=== PATIENT | female | born 1980 | race Caucasian/White ===

== ENCOUNTER 2016-09-28 14:55 | Observation (INO) | payer OTHER ==
--- NOTE | 2016-09-28 15:48 | ED ---
SOB HPI - General Chief Complaint: Shortness of Breath Stated Complaint: [facility] sent/SOB Time Seen by Provider: 09/28/16 15:29 Source: patient, RN notes reviewed Mode of arrival: ambulatory Limitations: no limitations - History of Present Illness Initial Comments: Patient is a 35-year-old female with chief complaint of sinus congestion and chest congestion for approximately 4 days. Patient reports that she's had increased shortness of breath however it's been on-and-off for a few days prior to today. Patient reports that shortness of breath is worse with exertion. She states that she's had a nonproductive cough as well. She attempted to try Mucinex D with minimal relief. She was sent here by an urgent care facility which she completed a rapid flu and strep are both negative as well as an albuterol breathing treatment. Patient's difficulty breathing is not improved after the breathing treatment. Patient does have a history of a DVT and had a iron a the EC filter placed and removed approximately 3 years ago. Patient states that she has not had any leg swelling or trauma or history of cancer. Patient is a smoker. Patient states that she does feel some numbness that radiates towards her left shoulder. Patient denies any other significant past medical history including history of hypertension or coronary artery disease. - Related Data Home Medications Medication Instructions Recorded Confirmed FLUoxetine HCL [Fluoxetine HCl] 20 mg PO DAILY 04/22/15 04/22/15 Ferrous Sulfate [Feosol] 325 mg PO BID 04/22/15 04/22/15 Naproxen [Naprosyn] 500 mg PO Q12HR 04/22/15 04/22/15 Previous Rx's Medication Instructions Recorded Acetaminophen-Codeine 300-30mg 1 each PO Q6H PRN #10 tablet 04/22/15 [Tylenol #3] Orphenadrine [Norflex] 100 mg PO Q12H PRN #6 tablet.er 04/22/15 Triamcinolone 0.5% Cream [Kenalog] 1 applic TOPICAL BID #30 cream..g. 04/22/15 Allergies Allergy/AdvReac Type Severity Reaction Status Date / Time No Known Allergies Allergy Verified 09/28/16 15:21 Review of Systems ROS Statement: Those systems with pertinent positive or pertinent negative responses have been documented in the HPI. ROS Other: All systems not noted in ROS Statement are negative. Past Medical History Past Medical History: Deep Vein Thrombosis (DVT) History of Any Multi-Drug Resistant Organisms: None Reported Past Surgical History: Section Past Psychological History: Depression Smoking Status: Current every day smoker Past Alcohol Use History: None Reported Past Drug Use History: None Reported General Exam - General Exam Comments Initial Comments: Patient is a 35-year-old female. She is on appear to be in any acute distress at this time. Limitations: no limitations General appearance: alert, in no apparent distress Head exam: Present: atraumatic, normocephalic, normal inspection Eye exam: Present: normal appearance, PERRL, EOMI. Absent: scleral icterus, conjunctival injection, periorbital swelling ENT exam: Present: normal exam, normal oropharynx, mucous membranes moist, TM's normal bilaterally Neck exam: Present: normal inspection. Absent: tenderness, meningismus, lymphadenopathy Respiratory exam: Present: normal lung sounds bilaterally. Absent: respiratory distress, wheezes, rales, rhonchi, stridor Cardiovascular Exam: Present: regular rate, normal rhythm, normal heart sounds. Absent: systolic murmur, diastolic murmur, rubs, gallop, clicks GI/Abdominal exam: Present: soft, normal bowel sounds. Absent: distended, tenderness, guarding, rebound, rigid Extremities exam: Present: normal inspection, full ROM, normal capillary refill. Absent: tenderness, pedal edema, joint swelling, calf tenderness Back exam: Present: normal inspection Neurological exam: Present: alert Psychiatric exam: Present: normal affect, normal mood Skin exam: Present: warm, dry, intact, normal color. Absent: rash Course Vital Signs 09/28/16 09/28/16 15:19 15:45 Temperature 98.1 F Pulse Rate 94 Respiratory 20 18 Rate Blood Pressure 123/76 O2 Sat by Pulse 98 Oximetry Medical Decision Making - Medical Decision Making Patient is a 35-year-old female with chief complaint of shortness of breath increasing over the past 4 days. She does not worse today and is worse with exertion. Patient denies any significant cardiac history however she is a smoker. Patient reports that she's had a history of blood clots in her lungs when she had a . Patient's lab work is relatively benign at this time. Patient has negative troponin and cardiac enzymes. Patient has a negative d-dimer as well. Patient's EKG is relatively abnormal with possible inferior infarct and anterior infarct. I discussed this case with Dr. Yuan and it would be safer to admit the patient for observation for the following evening. Patient understands the treatment plan and agrees to it. Patient understands the plan and will comply. - Lab Data Result diagrams: 09/28/16 15:44 09/28/16 15:44 Lab Results 09/28/16 09/28/16 09/28/16 Range/Units 15:44 15:44 15:44 WBC 7.6 (3.8-10.6) k/uL RBC 5.11 (3.80-5.40) m/uL Hgb 15.9 (11.4-16.0) gm/dL Hct 48.3 H (34.0-46.0) % MCV 94.4 (80.0-100.0) fL MCH 31.1 (25.0-35.0) pg MCHC 33.0 (31.0-37.0) g/dL RDW 13.4 (11.5-15.5) % Plt Count 215 (150-450) k/uL Neutrophils % 71 % Lymphocytes % 24 % Monocytes % 3 % Eosinophils % 1 % Basophils % 0 % Neutrophils # 5.4 (1.3-7.7) k/uL Lymphocytes # 1.8 (1.0-4.8) k/uL Monocytes # 0.2 (0-1.0) k/uL Eosinophils # 0.1 (0-0.7) k/uL Basophils # 0.0 (0-0.2) k/uL PT 11.2 (9.0-12.0) sec INR 1.1 (<1.1) APTT 23.0 (22.0-30.0) sec D-Dimer 0.18 (<0.60) mg/L FEU Sodium 143 (137-145) mmol/L Potassium 3.9 (3.5-5.1) mmol/L Chloride 106 (98-107) mmol/L Carbon Dioxide 25 (22-30) mmol/L Anion Gap 12 mmol/L BUN 13 (7-17) mg/dL Creatinine 0.59 (0.52-1.04) mg/dL Est GFR (MDRD) Af Amer >60 (>60 ml/min/1.73 sqM) Est GFR (MDRD) Non-Af >60 (>60 ml/min/1.73 sqM) Glucose 113 H (74-99) mg/dL Calcium 9.5 (8.4-10.2) mg/dL Magnesium (1.6-2.3) mg/dL Total Creatine Kinase (30-135) U/L CK-MB (CK-2) (0.0-2.4) ng/mL CK-MB (CK-2) Rel Index Troponin I (0.000-0.034) ng/mL 09/28/16 09/28/16 Range/Units 15:44 15:44 WBC (3.8-10.6) k/uL RBC (3.80-5.40) m/uL Hgb (11.4-16.0) gm/dL Hct (34.0-46.0) % MCV (80.0-100.0) fL MCH (25.0-35.0) pg MCHC (31.0-37.0) g/dL RDW (11.5-15.5) % Plt Count (150-450) k/uL Neutrophils % % Lymphocytes % % Monocytes % % Eosinophils % % Basophils % % Neutrophils # (1.3-7.7) k/uL Lymphocytes # (1.0-4.8) k/uL Monocytes # (0-1.0) k/uL Eosinophils # (0-0.7) k/uL Basophils # (0-0.2) k/uL PT (9.0-12.0) sec INR (<1.1) APTT (22.0-30.0) sec D-Dimer (<0.60) mg/L FEU Sodium (137-145) mmol/L Potassium (3.5-5.1) mmol/L Chloride (98-107) mmol/L Carbon Dioxide (22-30) mmol/L Anion Gap mmol/L BUN (7-17) mg/dL Creatinine (0.52-1.04) mg/dL Est GFR (MDRD) Af Amer (>60 ml/min/1.73 sqM) Est GFR (MDRD) Non-Af (>60 ml/min/1.73 sqM) Glucose (74-99) mg/dL Calcium (8.4-10.2) mg/dL Magnesium 1.9 (1.6-2.3) mg/dL Total Creatine Kinase 53 (30-135) U/L CK-MB (CK-2) 0.4 (0.0-2.4) ng/mL CK-MB (CK-2) Rel Index 0.8 Troponin I <0.012 (0.000-0.034) ng/mL 09/28/16 17:12EKG shows normal sinus rhythm. There is evidence of an inferior infarct and anterior infarct which the age is undetermined. The ventricular rate of 87 bpm. 4 ms. QRS duration 90 ms. QT/QTc is 44/46 seconds. there is evidence of ST depression in lead 3. - Radiology Data Radiology results: report reviewed Chest x-ray reviewed as negative for any acute process.. Disposition Clinical Impression: Chest pain, Dyspnea on exertion Disposition: ADMITTED IP TO THIS HOSP Referrals: Roxanna Washington MD [Primary Care Provider] - 1-2 days Time of Disposition: 17:24
[2016-09-28 16:06] LABS: Anion Gap 12 mmol/L; Blood Urea Nitrogen 13 mg/dL (7-17); Calcium 9.5 mg/dL (8.4-10.2); Carbon Dioxide 25 mmol/L (22-30); Chloride 106 mmol/L (98-107); Glucose 113 mg/dL (74-99); Non-African American GFR(MDRD) >60 (>60 ml/min/1.73 sqM); Potassium 3.9 mmol/L (3.5-5.1); Sodium 143 mmol/L (137-145)
[2016-09-28 16:10] LABS: Basophils % (A) 0 %; CHCM 34.1; Eosinophils # (A) 0.1 k/uL (0-0.7); Eosinophils % (A) 1 %; HCT 48.3 % (34.0-46.0); HDW 2.36; HGB 15.9 gm/dL (11.4-16.0); Luc # (Auto) 0.09; Luc % (Auto) 1; Lymphocytes # (A) 1.8 k/uL (1.0-4.8); Lymphocytes % (A) 24 %; MCH 31.1 pg (25.0-35.0); MCV 94.4 fL (80.0-100.0); Mean Platelet Volume 7.9; Monocytes # (A) 0.2 k/uL (0-1.0); Monocytes % (A) 3 %; Neutrophils # (A) 5.4 k/uL (1.3-7.7); Neutrophils % (A) 71 %; RBC 5.11 m/uL (3.80-5.40); RDW 13.4 % (11.5-15.5); WBC 7.6 k/uL (3.8-10.6); WBC (Perox) 7.53
[2016-09-28 16:16] LABS: Creatine Kinase 53 U/L (30-135); INR 1.1 (<1.1); Prothrombin Time 11.2 sec (9.0-12.0)
--- NOTE | 2016-09-28 16:18 | XR ---
EXAMINATION TYPE: XR chest 2V DATE OF EXAM: 09/28/2016 4:09 PM COMPARISON: NONE HISTORY: Shortness of breath and congestion TECHNIQUE: Frontal and lateral views of the chest are obtained. FINDINGS: There is no focal air space opacity, pleural effusion, or pneumothorax seen. The cardiac silhouette size is within normal limits. There is a spinal curvature. Patient is rotated. There is a pectus deformity. The osseous structures are intact. IMPRESSION: No acute cardiopulmonary process.
[2016-09-28 16:29] LABS: Creatine Kinase MB 0.4 ng/mL (0.0-2.4); Troponin I <0.012 ng/mL (0.000-0.034)
[2016-09-28] MEDS ORDERED: methylPREDNISolone SOD SUCCI 125 MG/2 ML VIAL IV STA (16:58)
[2016-09-28] MEDS: SODIUM CHLORIDE 0.9% 1,000 ML IV SCH (17:10)
[2016-09-28] MEDS ORDERED: NITROGLYCERIN SL TABS 0.4 MG TAB SUBLINGUAL PRN (17:25)
[2016-09-28] MEDS: IPRATROPIUM-ALBUTEROL 3 ML NEB INHALATION SCH ×3 (17:57→23:17)
[2016-09-28] MEDS: guaiFENesin 600 MG TABLET.ER PO SCH (20:12)
[2016-09-28] MEDS: ACETAMINOPHEN TAB 325 MG TAB PO PRN (20:12)
[2016-09-28] MEDS ORDERED: FERROUS SULFATE 325 MG TAB PO SCH (21:00)
[2016-09-28 21:56] LABS: Creatine Kinase 73 U/L (30-135)
[2016-09-28] MEDS ORDERED: RX INFO: IV CONTRAST WAS GIVEN 1 EACH MISC MISCELLANE PRN (22:02)
[2016-09-28 22:07] LABS: Creatine Kinase MB 0.5 ng/mL (0.0-2.4); Troponin I <0.012 ng/mL (0.000-0.034)
--- NOTE | 2016-09-28 22:43 | HP ---
DATE OF ADMISSION: 09/28/2016 PRESENTING COMPLAINT: Short of breath. HISTORY OF PRESENTING COMPLAINT: This is a 35-year-old patient of Dr. Brie Washington. Patient had a left leg DVT in December 2014 following childbirth, other than that unremarkable past medical history. Patient does smoke about a pack a day, for 2 days has had a cough, some shortness of breath, decreased appetite, sweating and every time the patient walks, she will get short of breath after walking a short distance. Patient did get bronchodilators downstairs and the patient has been wheezing, felt better after getting the same. REVIEW OF SYSTEMS: CONSTITUTIONAL: Tired. HEENT: None. RESPIRATORY: As above. CARDIOVASCULAR: None. GASTROINTESTINAL: None. GENITOURINARY: None. MUSCULOSKELETAL: None. DERMATOLOGIC: None. HEMATOLOGIC: None. LYMPHATIC: None. PSYCHIATRIC: None. NEUROLOGICAL: None. PAST MEDICAL HISTORY: DVT, UTIs, kidney stone 12 years ago. PAST SURGICAL HISTORY: and IVC filter that was inserted, then removed. SOCIAL HISTORY: Patient smokes about a pack a day for the last 17 years, lives with multiple family members. FAMILY HISTORY: Myocardial infarction. Grandfather had NC. Paternal uncle had heart surgery. HOME MEDICATIONS: None. ALLERGIES: None. On examination, vitals on presentation: Temperature 98.1, pulse 94, respirations 20, blood pressure 126/76, pulse ox 98% on room air. GENERAL APPEARANCE: Well built, lying in bed, not in distress. EYES: Pupils equal. Conjunctivae normal. HEENT: Oral cavity normal. NECK: JVD not raised. Mass not palpable. RESPIRATORY: Effort increased. LUNGS: Diminished breath sounds. CARDIOVASCULAR: First and second sounds normal. No edema. ABDOMEN: Soft, nontender. Liver and spleen not palpable. LYMPHATIC: No lymph nodes palpable in neck or axillae. PSYCHIATRY: Alert and oriented x3. Mood and affect were normal. NEUROLOGICAL: Pupils equal. Cranial nerves grossly intact. Power and sensation grossly intact. INVESTIGATIONS: White count 7.6, potassium 3.9. Troponin less than 0.012. BUN and creatinine normal. EKG: Nonspecific changes. Chest x-ray: Nil acute reported. ASSESSMENT: 1. Acute chronic obstructive pulmonary disease exacerbation in a patient who has been smoking for close to 16 years. 2. Unlikely, but rule out pulmonary embolism. 3. Chronic nicotine dependence in the patient is a smoker. PLAN: Patient is started on nebulized bronchodilators, IV steroids. Will order a chest CT to rule out a PE. Patient is given a nicotine patch. Also get a 2-D echocardiogram to assess LV function, but I doubt really there is any cardiac element to the presentation. Care was discussed with the patient.
[2016-09-28] MEDS: methylPREDNISolone SOD SUCCI 125 MG/2 ML VIAL IV SCH (23:09)
[2016-09-28] MEDS: HEPARIN SODIUM,PORCINE 5,000 UNIT/ML 1 ML VIAL SQ SCH (23:11)
[2016-09-28] MEDS: NICOTINE 14MG/24HR PATCH TRANSDERM SCH (23:14)
--- NOTE | 2016-09-29 | CT ---
EXAMINATION TYPE: CT angio chest DATE OF EXAM: 09/28/2016 10:42 PM COMPARISON: NONE HISTORY: Chest heaviness and difficulty breathing. CT DLP: 224.40 mGycm Automated exposure control for dose reduction was used. CONTRAST: CTA scan of the thorax is performed with IV Contrast, patient injected with 100 mL of Omnipaque 350, pulmonary embolism protocol. . FINDINGS: LUNGS: Mild atelectatic changes are suggested in both lung bases. Mild chronic interstitial lung mauricio ges are present bilaterally. Pphx-it-irdyulpj emphysematous changes are present bilaterally. No focal lung consolidation pneumothorax or pleural effusion is noted. The tracheobronchial tree is patent. MEDIASTINUM: There is satisfactory enhancement of the pulmonary artery and its branches, there is no CT evidence for pulmonary embolism. There are no greater than 1 cm hilar or mediastinal lymph nodes. No pericardial effusion is seen. Pectus excavatum changes are noted with mild retraction of sternotomy. OTHER: Thoracic cage intact. IMPRESSION: 1. NO EVIDENCE OF ACUTE PULMONARY EMBOLISM. 2. MILD ATELECTASIS AND EMPHYSEMATOUS CHANGES IN BOTH LUNGS WITHOUT FOCAL LUNG INFILTRATE OR CONSOLID ATION.
[2016-09-29] MEDS: SODIUM CHLORIDE 0.9% 1,000 ML IV SCH ×2 (04:15→09:23)
[2016-09-29 05:06] LABS: Cholesterol 134 mg/dL (<200); HDL Cholesterol 56 mg/dL (40-60); Triglycerides 49 mg/dL (<150)
[2016-09-29 05:15] LABS: Creatine Kinase 48 U/L (30-135)
[2016-09-29 05:29] LABS: Creatine Kinase MB 0.5 ng/mL (0.0-2.4); Troponin I <0.012 ng/mL (0.000-0.034)
[2016-09-29] MEDS: methylPREDNISolone SOD SUCCI 125 MG/2 ML VIAL IV SCH ×4 (05:46→23:39)
[2016-09-29] MEDS: ASPIRIN 325 MG TAB PO SCH (09:22)
[2016-09-29] MEDS: HEPARIN SODIUM,PORCINE 5,000 UNIT/ML 1 ML VIAL SQ SCH ×3 (09:22→23:40)
[2016-09-29] MEDS: FLUoxetine HCL 20 MG CAP PO SCH (09:23)
[2016-09-29] MEDS: NICOTINE 14MG/24HR PATCH TRANSDERM SCH (09:23)
[2016-09-29] MEDS: guaiFENesin 600 MG TABLET.ER PO SCH ×2 (09:23→21:11)
[2016-09-29] MEDS: IPRATROPIUM-ALBUTEROL 3 ML NEB INHALATION SCH ×4 (09:31→21:14)
[2016-09-29] MEDS: ACETAMINOPHEN TAB 325 MG TAB PO PRN ×3 (10:40→17:47)
--- NOTE | 2016-09-29 20:05 | PN ---
DATE OF SERVICE: 09/29/2016 PRESENTING COMPLAINT: Short of breath. INTERVAL HISTORY: This patient was admitted with COPD exacerbation. CT scan is negative for PE. Does confirm emphysema. Patient is still short of breath, tired. Review of systems done for constitutional, cardiovascular, GI, pulmonary; relevant findings as above. Current medications include nebulized bronchodilators, IV Solu-Medrol. On examination, temperature 98.5, pulse 90, respiration 18, blood pressure 89/41, pulse ox 93% on room air. GENERAL APPEARANCE: Sitting up, not in distress. EYES: Pupils equal. Conjunctivae normal. NECK: JVD not raised. Mass no palpable. RESPIRATORY: Effort increased. LUNGS: Diminished breath sounds. Prolonged expiration. CARDIOVASCULAR: First and second sounds normal. No edema. ABDOMEN: Soft, nontender. Liver and spleen not palpable. PSYCHIATRIC: Alert and oriented x3. Mood and affect normal. INVESTIGATIONS: LDL 68. CT scan of the chest shows emphysema. ASSESSMENT: 1. Acute chronic obstructive pulmonary disease exacerbation in a smoker, slow to respond. 2. Pulmonary embolism ruled out. 3. Chronic nicotine dependence in a patient who is a smoker. PLAN: Continue current medication and treatment plan. Will add nebulized steroids. Awaiting 2-D echo. Patient is slow to respond. Again counseled against smoking. Patient will need at least 48 hours of inpatient stay because of COPD exacerbation.
[2016-09-29] MEDS: BUDESONIDE 1 MG/2 ML NEBU INHALATION SCH (21:14)
[2016-09-30] MEDS: IPRATROPIUM-ALBUTEROL 3 ML NEB INHALATION SCH ×5 (00:16→15:29)
[2016-09-30] MEDS: methylPREDNISolone SOD SUCCI 125 MG/2 ML VIAL IV SCH ×3 (05:10→17:11)
[2016-09-30] MEDS: NICOTINE 14MG/24HR PATCH TRANSDERM SCH (07:43)
[2016-09-30] MEDS: HEPARIN SODIUM,PORCINE 5,000 UNIT/ML 1 ML VIAL SQ SCH ×2 (07:43→15:02)
[2016-09-30] MEDS: FLUoxetine HCL 20 MG CAP PO SCH (07:44)
[2016-09-30] MEDS: guaiFENesin 600 MG TABLET.ER PO SCH (07:44)
[2016-09-30] MEDS: ASPIRIN 325 MG TAB PO SCH (07:44)
[2016-09-30] MEDS: BUDESONIDE 1 MG/2 ML NEBU INHALATION SCH (08:36)
[2016-09-30] MEDS: NICOTINE POLACRILEX 2 MG GUM BUCCAL PRN ×2 (10:50→15:02)
[2016-09-30 14:26] VITALS: BP 113/57; PULSE 88; RESP 16; TEMP 97.6
--- NOTE | 2016-10-01 11:29 | DS ---
DATE OF ADMISSION: 09/29/2016 DATE OF DISCHARGE: 09/30/2016 FINAL DIAGNOSES: 1. Acute severe chronic obstructive pulmonary disease exacerbation in a smoker. 2. Pulmonary embolism, ruled out. 3. Chronic nicotine dependence. Patient is a smoker. HOSPITAL COURSE: This patient presented with COPD exacerbation. Counseled extensively about nonsmoking. On exam, lungs improved air entry. ( ) a 2-D echocardiogram also results which were pending. Discharge planning more than 35 minutes. DISCHARGE MEDICATIONS: 1. Ventolin HFA 1 to 2 puffs q.6 p.r.n. 2. Pulmicort 2 puffs b.i.d. 3. Prozac 20 mg p.o. daily. 4. Atrovent 2 puffs q.i.d. 5. Nicotine patch. 6. Nicorette 2 mg gum q.2 p.r.n. 7. Prednisone taper. Patient to be off of work one week. Follow up with Dr. Washington in 3 days. Discharge planning more than 35 minutes.
--- NOTE | 2016-10-06 10:40 | ECHOF ---
Referral Reason:assess LV function MEASUREMENTS -------- HEIGHT: 157.5 cm WEIGHT: 73.0 kg BP: 100/52 IVSd: 0.9 cm (0.6 - 1.1) LVIDd: 4.0 cm (3.9 - 5.3) LVPWd: 1.0 cm (0.6 - 1.1) IVSs: 1.4 cm LVIDs: 2.7 cm LVPWs: 1.2 cm Ao Diam: 3.5 cm (2.0 - 3.7) AV Cusp: 1.7 cm (1.5 - 2.6) LA Diam: 3.0 cm (2.7 - 3.8) MV EXCURSION: 21.866 mm (> 18.000) MV EF SLOPE: 131 mm/s (70 - 150) EPSS: 1.0 cm MV E Rodrick: 0.97 m/s MV DecT: 258 ms MV A Rodrick: 0.69 m/s MV E/A Ratio: 1.42 RAP: 5.00 mmHg RVSP: 8.15 mmHg FINDINGS -------- Sinus rhythm. This was a technically difficult study with suboptimal views. Left ventricular wall thickness is normal. Overall left ventricular systolic function is normal with, an EF between 55 - 60 %. The right ventricle is normal in size and function. The left atrium is normal in size. The right atrium is normal in size. The aortic valve was not well visualized. There is trace mitral regurgitation. Trace tricuspid regurgitation present. The right ventricular systolic pressure, as measured by Doppler, is 8.15mmHg. Pulmonic valve appears structurally normal. The aortic root, ascending aorta and aortic arch are normal. The pericardium is normal. CONCLUSIONS -------- 1. Sinus rhythm. 2. Trace tricuspid regurgitation present. 3. The right ventricular systolic pressure, as measured by Doppler, is 8.15mmHg. 4. Pulmonic valve appears structurally normal. 5. The aortic root, ascending aorta and aortic arch are normal. 6. The pericardium is normal. 7. This was a technically difficult study with suboptimal views. 8. Left ventricular wall thickness is normal. 9. Overall left ventricular systolic function is normal with, an EF between 55 - 60 %. 10. The right ventricle is normal in size and function. 11. The left atrium is normal in size. 12. The right atrium is normal in size. 13. The aortic valve was not well visualized. 14. There is trace mitral regurgitation. RETAIL PERFORMANCE COACH: Teodora Grant RDCS
== END 2016-09-30 19:02 | disposition home or self-care (01) ==
LOC: EC 14:55 → 3OBS 17:22 → INTOOBSV 09-29 14:45 → OBSVTOIN 09-29 14:45 → 3SUR 09-29 20:56
PROVIDERS: ADMIT Hospitalist; ATTEND Hospitalist
DX: J44.1 Chronic obstructive pulmonary disease with (acute) exacerbation (principal); F32.9 Major depressive disorder, single episode, unspecified; F17.210 Nicotine dependence, cigarettes, uncomplicated; R09.81 Nasal congestion; R09.89 Other specified symptoms and signs involving the circulatory and respiratory systems; Z79.899 Other long term (current) drug therapy; Z82.49 Family history of ischemic heart disease and other diseases of the circulatory system; Z86.718 Personal history of other venous thrombosis and embolism
CPT/HCPCS: 99285; 96374; 36415; 94640 ×5; 93005; 93306; 85379; 80061; 80048; 82550 ×2; 82553 ×2; 83735; 84484 ×2; 85025; 85610; 85730; 71020; 71275; G0378 ×4; S4990 ×3; J1644 ×3; J2930 ×3; Q9967